=== PATIENT | female | born 1955 | race Caucasian/White ===

== ENCOUNTER 2022-07-13 12:57 | Outpatient (CLI) | payer MEDICARE | END 2022-07-13 12:58 | disposition home or self-care (01) | LOC: CSHMAMMO 12:57 | PROVIDERS: ATTEND Obstetrics & Gynecology | DX: Z12.31 Encounter for screening mammogram for malignant neoplasm of breast (principal); Z80.3 Family history of malignant neoplasm of breast | CPT/HCPCS: 77063; 77067 ==

== ENCOUNTER 2023-07-20 12:03 | Outpatient (CLI) | payer MEDICARE | END 2023-07-20 12:04 | disposition home or self-care (01) | LOC: CSHMAMMO 12:03 | PROVIDERS: ATTEND Obstetrics & Gynecology | DX: Z12.31 Encounter for screening mammogram for malignant neoplasm of breast (principal); Z80.3 Family history of malignant neoplasm of breast | CPT/HCPCS: 77063; 77067 ==

== ENCOUNTER 2025-07-29 14:12 | Outpatient (CLI) | payer MEDICARE | END 2025-07-29 14:13 | disposition home or self-care (01) | LOC: CSHMAMMO 14:12 | PROVIDERS: ATTEND Internal Medicine | DX: Z12.31 Encounter for screening mammogram for malignant neoplasm of breast (principal); Z80.3 Family history of malignant neoplasm of breast | CPT/HCPCS: 77063; 77067 ==